=== PATIENT | female | born 1955 | race Caucasian/White ===

== ENCOUNTER → 2018-12-15 13:49 | Outpatient (CLI) | payer OTHER ==
--- NOTE | 2018-12-20 14:51 | ST ---
PATIENT:SANDIP CASTILLO MEDICAL RECORD: [id number] SEX: F [facility] ORDER #: ADMISSION DATE: 12/15/18 AGE OF PATIENT: 63 REFERRING PHYSICIAN: INTERPRETING PHYSICIAN: BRIAN PRATT MD DATE OF SERVICE: 12/15/2018 PROCEDURE: Treadmill stress test. Baseline ECG normal. Exercised for 5 minutes under Luis protocol, maximum heart rate 170 beats per minute with 100% max predicted. No ECG change of ischemia. No symptoms of ischemia. Normal blood pressure response to exercise. PVC was noted at recovery. Fair exercise tolerance for age. IMPRESSION: Negative treadmill stress test with fair exercise tolerance. PVC at recovery. TRANSINT:[id number] Voice Confirmation ID: [id number] DOCUMENT ID: [id number] BRIAN PRATT MD at 1451 CC: [id number] DICTATION DATE: 12/19/18 1411 [employer] PROGRAM MANAGER: 12/19/18 2208 DEP CLI 12/15/18 [id number] [place] [address]
== END | disposition home or self-care (01) ==
LOC: D.HCCARDIO 13:49
DX: R06.09 Other forms of dyspnea (principal)